=== PATIENT | female | born 1995 | race Caucasian/White ===

== ENCOUNTER 2020-08-27 11:42 | Emergency (ER) | payer OTHER ==
[~2020-08-27] VITALS: Ht 162.6 cm; Wt 45.4 kg
--- NOTE | 2020-08-27 11:50 | NUR ---
pt came to ER with c/o generalized rash, and facial swelling since last night, took benadryl 50mg last night but didnt work. pt states she didnt know the cause. no sob. no desaturation. awaiting for MD arevalo
[2020-08-27] MEDS ORDERED: EPINEPHRINE (1:1000) 1 MG/ML AMPUL ONE (12:28)
[2020-08-27] MEDS ORDERED: predniSONE 20 MG TABLET ONE (12:29)
[2020-08-27] MEDS ORDERED: FAMOTIDINE (20 MG) 20 MG TABLET ONE (12:29)
[2020-08-27] MEDS ORDERED: diphenhydrAMINE HCL 50 MG CAPSULE ONE (12:29)
[2020-08-27] MEDS ORDERED: FAMOTIDINE (20 MG) 20 MG TABLET PO ONE (12:30)
[2020-08-27] MEDS ORDERED: diphenhydrAMINE HCL 50 MG CAPSULE PO ONE (12:30)
[2020-08-27] MEDS ORDERED: EPINEPHRINE (1:1000) MDV 30 MG/30ML VIAL SUBCUT ONE (12:30)
[2020-08-27] MEDS ORDERED: predniSONE 10 MG TABLET PO ONE (12:30)
[2020-08-27 13:05] VITALS: BP 115/76
== END 2020-08-27 13:05 | disposition home or self-care (01) ==
LOC: ER 11:49
DX: L23.2 Allergic contact dermatitis due to cosmetics (principal); X58.XXXA Exposure to other specified factors, initial encounter
CPT/HCPCS: 96372; 99284; J0171 ×2; J7512; Q0163